=== PATIENT | male | born 1985 | race Caucasian/White ===

== ENCOUNTER 2019-08-22 14:32 | Emergency (ER) | payer SELFPAY ==
[~2019-08-22] VITALS: Ht 170.2 cm; Wt 90.7 kg
[2019-08-22 14:35] VITALS: Ht 170.2 cm; Wt 90.7 kg
[2019-08-22 19:46] VITALS: BP 134/87
== END 2019-08-22 19:46 | disposition home or self-care (01) ==
LOC: ED 14:32
DX: B34.9 Viral infection, unspecified (principal); R53.83 Other fatigue; Z20.828 Contact with and (suspected) exposure to other viral communicable diseases